=== PATIENT | female | born 1935 | race Caucasian/White ===

== ENCOUNTER → 2019-03-20 10:04 | Outpatient (CLI) | payer MEDICARE, BC | END | disposition home or self-care (01) | LOC: D.CT 10:04 | PROVIDERS: ATTEND Family Medicine | DX: R91.8 Other nonspecific abnormal finding of lung field (principal) ==

== ENCOUNTER → 2019-07-25 10:21 | Outpatient (CLI) | payer MEDICARE, BC ==
--- NOTE | ~2019-07-25 | ST ---
PATIENT:VIVIANA ZAMUDIO MEDICAL RECORD: [id number] SEX: F LOCATION:[facility] ORDER #: ADMISSION DATE: 07/25/19 AGE OF PATIENT: 83 REFERRING PHYSICIAN: INTERPRETING PHYSICIAN: OLGA DRUMMOND MD DATE OF SERVICE: 07/25/2019 INDICATION: Shortness of breath, abnormal ECG. She was exercised on standard Lexiscan protocol with 33 mCi of sestamibi injected at peak stress, 11 mCi used previously for rest images. FINDINGS: Gated SPECT reveals preserved ejection fraction at 82% with good wall motion and thickening and brightening throughout all segments. SPECT imaging Cardiolite was used as myocardial fusion agent. There is homogeneous uptake throughout all segments at rest and stress with no evidence of inducible ischemia or previous infarction. OVERALL IMPRESSION: 1. This is a normal nuclear stress test with no evidence of inducible ischemia or previous infarction. 2. Gated SPECT reveals a preserved ejection fraction at 82%. In this patient with ongoing symptomatology, the current scan does not suggest the presence of hemodynamically significant coronary artery disease. Evaluate noncardiac etiology of chest pain. TRANSINT:[id number] Voice Confirmation ID: [id number] DOCUMENT ID: [id number] OLGA DRUMMOND MD CC: MILAGROS AGARWAL APN [id number] DICTATION DATE: 07/25/19 1624 MEDICAL RECORDS TECH: 07/25/19 2348 DEP CLI 07/25/19 [id number] [place] [address]
== END | disposition home or self-care (01) ==
LOC: D.HCCECHO 10:21
PROVIDERS: ATTEND Internal Medicine Interventional Cardiology
DX: I10 Essential (primary) hypertension (principal); I20.9 Angina pectoris, unspecified

== ENCOUNTER 2020-01-15 16:36 | Emergency (ER) | payer MEDICARE, BC ==
[~2020-01-15] VITALS: Ht 172.7 cm; Wt 79.5 kg
[2020-01-15 16:48] VITALS: Ht 172.7 cm; Wt 79.5 kg
[2020-01-15] MEDS ORDERED: CYCLOBENZAPRINE10 MG PO (16:51)
[2020-01-15] MEDS ORDERED: SINGULAIR10 MG PO (16:51)
[2020-01-15] MEDS ORDERED: PROTONIX40 MG PO (16:52)
[2020-01-15 17:55] LABS: CALCIUM 9.1 mg/dL (8.5-10.1); CARBON DIOXIDE 26.5 mmol/L (21.0-32.0); CREATININE - SERUM 1.4 mg/dL (0.6-1.3); POTASSIUM - SERUM 4.5 mmol/L (3.5-5.1)
[2020-01-15 17:59] LABS: HEMATOCRIT 42.9 % (36.0-48.0); HEMOGLOBIN 13.8 g/dL (12-16); LYMPHOCYTES 8.8 % (15-50); MCH 27.8 pg (26.0-34.0); MCHC 32.2 g/dL (31.0-37.0); MCV 86.3 fL (80.0-100.0); MEAN PLATELET VOLUME 9.7 fL (7.4-10.4); PLATELET COUNT 284 10x3/uL (130-400); RBC 4.97 10x6/uL (4.00-5.40); RDW 13.5 % (11.5-14.5); WBC 12.8 10x3/uL (4.8-10.8)
[2020-01-15 18:01] LABS: ALBUMIN 4.1 g/dL (3.4-5.0); BILIRUBIN - TOTAL 1.32 mg/dL (0.2-1.3); PROTEIN - SERUM 7.8 g/dL (6.4-8.2)
[2020-01-15 18:35] LABS: APTT 34.7 SECONDS (22.8-39.4); INR 0.93 (0.85-1.17); PROTIME 12.4 SECONDS (11.6-15.0)
[2020-01-15 19:06] LABS: BILIRUBIN NEGATIVE (NEGATIVE); GLUCOSE NEGATIVE (NEGATIVE); KETONE NEGATIVE (NEGATIVE); NITRITE NEGATIVE (NEGATIVE); SPECIFIC GRAVITY 1.025 (1.005-1.020); UROBILINOGEN NORMAL (NORMAL); WHITE CELLS - URINE 0-5 /hpf (NEGATIVE)
[2020-01-15 19:07] LABS: BACTERIA FEW /hpf (NEGATIVE); EPITHELIAL CELLS 0-5 /hpf (0-5)
[2020-01-15] MEDS ORDERED: MACROBID100 MG PO (21:37)
[2020-01-15 22:36] VITALS: BP 128/79
== END 2020-01-15 22:37 | disposition home or self-care (01) ==
LOC: D.ER 16:36
PROVIDERS: Emergency Medicine
DX: N85.9 Noninflammatory disorder of uterus, unspecified (principal); N39.0 Urinary tract infection, site not specified; N93.9 Abnormal uterine and vaginal bleeding, unspecified; R10.30 Lower abdominal pain, unspecified

== ENCOUNTER → 2020-03-30 15:20 | Outpatient (CLI) | payer MEDICARE, BC ==
[2020-01-15 16:48] VITALS: BMI 26.6
[~2020-03-30 15:20] MED LIST: CYCLOBENZAPRINE10 MG PO; MACROBID100 MG PO; PROTONIX40 MG PO; SINGULAIR10 MG PO
[2020-03-30 15:58] LABS: BASOPHILS 0.3 % (0-2); EOSINOPHILS 3.2 % (0-7); HEMATOCRIT 41.5 % (36.0-48.0); HEMOGLOBIN 13.3 g/dL (12-16); IMMATURE GRANULOCYTES 0.4 % (0-5); LYMPHOCYTES 21.9 % (15-50); MCH 27.7 pg (26.0-34.0); MCV 86.5 fL (80.0-100.0); MEAN PLATELET VOLUME 9.6 fL (7.4-10.4); MONOCYTES 9.3 % (2-11); NEUTROPHILS 64.9 % (40-80); PLATELET COUNT 278 10x3/uL (130-400); RDW 14.5 % (11.5-14.5); WBC 7.8 10x3/uL (4.8-10.8)
[2020-03-30 16:21] LABS: ALBUMIN 3.8 g/dL (3.4-5.0); ANION GAP 10.8 mmol/L (8-16); BILIRUBIN - TOTAL 0.76 mg/dL (0.2-1.3); CARBON DIOXIDE 26.5 mmol/L (21.0-32.0); CREATININE - SERUM 1.3 mg/dL (0.6-1.3); POTASSIUM - SERUM 4.3 mmol/L (3.5-5.1); PROTEIN - SERUM 7.2 g/dL (6.4-8.2)
== END | disposition home or self-care (01) ==
LOC: D.LAB 15:20
DX: C54.1 Malignant neoplasm of endometrium (principal)